=== PATIENT | male | born 1985 | race Caucasian/White ===

== ENCOUNTER 2024-09-06 13:31 | Emergency (ER) | payer MEDICAID, OTHER ==
[~2024-09-06 13:31] MED LIST: HYDR1TAB PO; IBUP-1984 PO; IBUP-812 PO; NO HOME MEDS
== END 2024-09-06 16:59 | disposition left against medical advice (07) ==
LOC: ER 13:32
DX: K81.9 Cholecystitis, unspecified (principal); Z53.21 Procedure and treatment not carried out due to patient leaving prior to being seen by health care provider